=== PATIENT | male | born 1990 | race American Indian/Alaskan Native ===

== ENCOUNTER 2021-04-05 05:42 | Emergency (ER) | payer MEDICAID, OTHER ==
[2021-04-05] MEDS ORDERED: Ketorolac 30 MG/ML SDV IM ONE (06:01)
== END 2021-04-05 06:19 | disposition home or self-care (01) ==
LOC: DL.ED 05:42
DX: K04.7 Periapical abscess without sinus (principal)
CPT/HCPCS: 96372; 99282; J1885

== ENCOUNTER 2021-08-20 19:27 | Emergency (ER) | payer MEDICAID ==
[2021-08-20] MEDS ORDERED: methylPREDNISolone Sodium Succinate 125 MG/2 ML SDV IM ONE (19:38)
== END 2021-08-20 20:05 | disposition home or self-care (01) ==
LOC: DL.ED 19:27
DX: M54.41 Lumbago with sciatica, right side (principal)
CPT/HCPCS: 96372; 99283; J2930

== ENCOUNTER 2021-09-06 23:00 | Emergency (ER) | payer MEDICAID ==
[2021-09-06] MEDS ORDERED: Cephalexin 500 MG Cap PO ONE ×2 (23:01→23:13)
[2021-09-06] MEDS ORDERED: Cephalexin 500 MG Cap ONE (23:27)
== END 2021-09-06 23:36 | disposition home or self-care (01) ==
LOC: DL.ED 23:00
DX: L02.211 Cutaneous abscess of abdominal wall (principal)
CPT/HCPCS: 99282; A9270

== ENCOUNTER 2021-09-08 21:00 | Emergency (ER) | payer MEDICAID ==
[2021-09-08] MEDS: Lidocaine 1% 5 ML VIAL INJECT ONE (21:29)
[2021-09-08] MEDS: Ibuprofen 600 MG Tab PO ONE (21:32)
[2021-09-08] MEDS: Doxycycline Monohydrate 100 MG Cap PO ONE (21:55)
== END 2021-09-08 21:58 | disposition home or self-care (01) ==
LOC: DL.ED 21:00
DX: L03.311 Cellulitis of abdominal wall (principal); I10 Essential (primary) hypertension; Z87.891 Personal history of nicotine dependence
CPT/HCPCS: 10060; 99283-25; 99284; A9270-GY

== ENCOUNTER 2021-09-18 14:48 | Emergency (ER) | payer MEDICAID ==
[2021-09-18] MEDS ORDERED: Sodium Chloride 0.9% 10 ML Syringe FLUSH PRN (16:05)
[2021-09-18 17:09] LABS: ANION GAP 11.3 mEq/L (7-13)
== END 2021-09-18 16:40 | disposition left against medical advice (07) ==
LOC: DL.ED 14:48
DX: M79.89 Other specified soft tissue disorders (principal); M54.50 Low back pain, unspecified; I10 Essential (primary) hypertension; F17.210 Nicotine dependence, cigarettes, uncomplicated
CPT/HCPCS: 36415; 80053; 83880; 84443; 85025; 99283

== ENCOUNTER 2021-09-18 20:16 | Emergency (ER) | payer MEDICAID ==
[2021-09-18] MEDS ORDERED: Potassium Chloride 20 MEQ in Premix Bag 1 BAG IV ONE (22:33)
[2021-09-18] MEDS ORDERED: Sodium Chloride 0.9% 1,000 ML IV ONE (22:33)
[2021-09-18 23:06] LABS: ANION GAP 14.3 mEq/L (7-13)
[2021-09-19] MEDS ORDERED: Potassium Chloride 20 MEQ in Premix Bag 1 BAG IV ONE (00:25)
[2021-09-19 01:12] LABS: AMPHETAMINES,URINE NEGATIVE (NEGATIVE); BARBITURATES,URINE NEGATIVE (NEGATIVE); BENZODIAZEPINE,URINE NEGATIVE (NEGATIVE); MDMA (ECSTASY), URINE NEGATIVE (NEGATIVE); METHADONE,URINE NEGATIVE (NEGATIVE); METHAMPHETAMINES,URINE NEGATIVE (NEGATIVE); OPIATES,URINE NEGATIVE (NEGATIVE); OXYCODONE,URINE NEGATIVE (NEGATIVE); PHENCYCLIDINE,URINE NEGATIVE (NEGATIVE); TCA,URINE NEGATIVE (NEGATIVE)
== END 2021-09-19 02:05 | disposition left against medical advice (07) ==
LOC: DL.ED 20:16
DX: R60.0 Localized edema (principal); E87.6 Hypokalemia; I10 Essential (primary) hypertension; F17.210 Nicotine dependence, cigarettes, uncomplicated
CPT/HCPCS: 36415; 71045; 80048; 80305; 80307; 81001; 82150; 83605; 83690; 83880; 84484; 85025; 87040; 93005; 93010; 96361; 96365; 96366; 99284; J3480; J7030